=== PATIENT | male | born 1940 | race Hispanic/Latino ===

== ENCOUNTER 2017-11-10 09:35 | Observation (INO) | payer MEDICARE ==
[2017-11-10 09:35] VITALS: BMI 30.8
[2017-11-10 10:17] LABS: BASO # 0.02 K/mm3 (0.0-2.0); BASO % 0.3 % (0.0-3.0); EOS # 0.2 (0.0-0.7); EOS % 2.6 % (1.5-5.0); GRAN # 3.96 (1.4-6.5); GRAN % 59.9 % (50.0-68.0); HEMOGLOBIN 15.6 g/dL (14.0-18.0); LYMPH # 1.9 (1.2-3.4); LYMPH % 29.2 % (22.0-35.0); MEAN CELL VOLUME 96.8 fl (80.0-105.0); MEAN CORPUSCULAR HEMOGLOBIN 32.8 pg (25.0-35.0); MEAN CORPUSCULAR HGB CONC 33.8 g/dl (31.0-37.0); MEAN PLATELET VOLUME 9.8 fl (7.0-11.0); MONO # 0.5 (0.1-0.6); RBC 4.76 10^6/uL (3.5-6.1); RED CELL DISTRIBUTION WIDTH 13.1 % (11.5-14.5); WHITE BLOOD COUNT 6.6 10^3/ul (4.5-11.0)
[2017-11-10 10:29] LABS: ALBUMIN 4.7 g/dL (3.0-4.8); ALT/SGPT 40 U/L (7-56); AST/SGOT 28 U/L (17-59); BLOOD UREA NITROGEN 14 mg/dL (7-21); GFR AFRICAN-AMERICAN > 60; GFR NON-AFRICAN AMERICAN > 60
[2017-11-10 10:41] LABS: ALB/GLOB RATIO 1.3 (1.1-1.8); TROPONIN I < 0.01 ng/mL
--- NOTE | 2017-11-10 11:24 | ED PDOC ---
Arrival/HPI - General Chief Complaint: Chest Pain Time Seen by Provider: 11/10/17 10:05 Historian: Patient - Critical Care Critical Care Minutes: 45 minutes - History of Present Illness Narrative History of Present Illness (Text): 11/10/17 11:00 Robbie Ordaz is a 77 year old male, whose past medical history includes hypertension, who presents to the emergency department complaining of episodes of chest pain that began this morning. Patient reports sitting down but the pain persisted. Additionally, patient reports coughing. Patient denies shortness of breath, fever, nausea, vomiting, diarrhea, or other complaints. Time/Duration: Prior to Arrival Symptom Onset: Sudden Symptom Course: Unchanged Quality: Stabbing Activities at Onset: Light Context: Home Past Medical History - Provider Review Nursing Documentation Reviewed: Yes - Infectious Disease Hx of Infectious Diseases: None - Tetanus Immunization Tetanus Immunization: Unknown - Cardiac Hx Hypertension: Yes - Psychiatric Hx Psychophysiologic Disorder: No Hx Anxiety: No Hx Bipolar Disorder: No Hx Depression: No Hx Emotional Abuse: No Hx Hallucinations: No Hx Panic Disorder: No Hx Post Traumatic Stress Disorder: No Hx Psychosis: No Hx Physical Abuse: No Hx Schizophrenia: No Hx Sexual Abuse: No Hx Substance Use: No - Surgical History Hx Appendectomy: Yes - Anesthesia Hx Anesthesia: Yes Hx Anesthesia Reactions: No Hx Malignant Hyperthermia: No - Suicidal Assessment Feels Threatened In Home Enviroment: No Family/Social History Family/Social History: No Known Family HX Smoking Status: Current Some Days Smoker Hx Alcohol Use: No Hx Substance Use: No Allergies/Home Meds Allergies/Adverse Reactions: Allergies vinger Allergy (Uncoded 11/10/17 09:41) SWELLING Home Medications: Home Meds Medication Instructions Recorded Confirmed Aspirin [Adult Aspirin Regimen] 81 mg PO DAILY 11/10/17 11/10/17 Atorvastatin [Lipitor] 10 mg PO DAILY 11/10/17 11/10/17 Metoprolol Succinate [Toprol XL] 25 mg PO BID 11/10/17 11/10/17 Multivit-Min/FA/Lycopen/Lutein 1 tab PO DAILY 11/10/17 11/10/17 [Centrum Silver Men Tablet] [id number] Ethyl Esters [OMEGA 3] 300 mg PO BID 11/10/17 11/10/17 Omeprazole [Omeprazole] 40 mg PO DAILY 11/10/17 11/10/17 Ranitidine HCl [Zantac 300] 300 mg PO HS 11/10/17 11/10/17 [place] Xt/Phytosterol #2 1 tab PO TID 11/10/17 11/10/17 [Prostate Sr Softgel] Physical Exam Vital Signs Reviewed: Yes Vital Signs Temp Pulse Resp BP Pulse Ox 11/10/17 17:02 98.3 F 81 28 H 149/85 11/10/17 14:00 98.7 F 72 134/74 11/10/17 12:44 97 H 18 128/68 11/10/17 10:50 97 H 16 128/68 98 11/10/17 09:56 96 H 18 162/75 H 98 11/10/17 09:36 97.6 F 156 H 18 144/97 H 98 Temperature: Afebrile Blood Pressure: Hypertensive Pulse: Tachycardic Respiratory Rate: Normal Appearance: Positive for: Well-Appearing, Non-Toxic, Comfortable Pain Distress: None Mental Status: Positive for: Alert and Oriented X 3 - Systems Exam Head: Present: Atraumatic, Normocephalic Pupils: Present: PERRL Extroacular Muscles: Present: EOMI Conjunctiva: Present: Normal Mouth: Present: Moist Mucous Membranes Neck: Present: Normal Range of Motion Respiratory/Chest: Present: Clear to Auscultation, Good Air Exchange. No: Respiratory Distress, Accessory Muscle Use, Wheezes, Retracting, Rhonchi Cardiovascular: Present: Regular Rate and Rhythm, Normal S1, S2. No: Murmurs Abdomen: Present: Normal Bowel Sounds. No: Tenderness, Distention, Peritoneal Signs, Rebound, Guarding Upper Extremity: Present: Normal Inspection. No: Cyanosis, Edema Lower Extremity: Present: Normal Inspection. No: Edema Neurological: Present: GCS=15, CN II-XII Intact, Speech Normal Skin: Present: Warm, Dry, Normal Color. No: Rashes Psychiatric: Present: Alert, Oriented x 3, Normal Insight, Normal Concentration Medical Decision Making ED Course and Treatment: 11/10/17 Impression: 77 year old male with unremarkable physical exam. Plan: -- EKG -- Chest X-ray -- Labs -- Adenosine and Aspirin -- Reassess and disposition Progress Notes: First EKG: Ordered, reviewed, and independently interpreted the EKG. Rate : 155 BPM Rhythm : SVT Interpretation : No ST-segment elevations or depressions, no T-wave inversions, normal intervals. Second EKG: Ordered, reviewed, and independently interpreted the EKG. Rate : 96 BPM Rhythm : NSR Interpretation : PVS's 11/10/2017 11:[address] Rios who accepts patient under his care and will admit to telemetry. - Critical Care Critical Care Minutes: 30 minutes - Lab Interpretations Lab Results: 11/10/17 09:10 11/10/17 09:10 Lab Results 11/10/17 09:10: Free T4 0.90, Total T3 1.35, TSH 3rd Generation 1.41 11/10/17 09:10: Sodium 144, Potassium 4.0, Chloride 103, Carbon Dioxide 28, Anion Gap 17, BUN 14, Creatinine 0.8, Est GFR ( Amer) > 60, Est GFR (Non- Af Amer) > 60, Random Glucose 120 H, Calcium 10.0, Magnesium 2.0, Total Bilirubin 0.5, AST 28, ALT 40, Alkaline Phosphatase 69, Lactate Dehydrogenase 421, Total Creatine Kinase 73, Troponin I < 0.01, Total Protein 8.4 H, Albumin 4.7, Globulin 3.6, Albumin/Globulin Ratio 1.3 11/10/17 09:10: WBC 6.6 D, RBC 4.76, Hgb 15.6, Hct 46.1, MCV 96.8, MCH 32.8, MCHC 33.8, RDW 13.1, Plt Count 207, MPV 9.8, Gran % 59.9, Lymph % (Auto) 29.2, [place] % (Auto) 8.0 H, Eos % (Auto) 2.6, Baso % (Auto) 0.3, Gran # 3.96, Lymph # 1.9, [place] # 0.5, Eos # 0.2, Baso # 0.02 I have reviewed the lab results: Yes - RAD Interpretation Radiology Orders: 11/10/17 10:05 CHEST PORTABLE [RAD] Stat Cosmetician Apprentice: Radiologist - EKG Interpretation Interpreted by ED Physician: Yes Type: 12 lead EKG - Medication Orders Current Medication Orders: Amoxicillin/Clavulanate Potassium (Augmentin 500 Mg-125 Mg Tab) 1 tab PO BID MASOUD PRN Reason: Protocol Last Admin: 11/10/17 18:24 Dose: 1 tab Aspirin (Ecotrin) 81 mg PO DAILY MASOUD Atorvastatin Calcium (Lipitor) 10 mg PO DAILY MASOUD Metoprolol Succinate (Toprol Xl) 25 mg PO Q12 MASOUD Pantoprazole Sodium (Protonix Ec Tab) 40 mg PO DAILY MASOUD Promethazine HCl/Dextromethorphan (Phenergan Dm Syrup) 5 ml PO Q6H PRN PRN Reason: Cough Discontinued Medications Adenosine (Adenosine 6 Mg/2 Ml Inj) 6 mg IVP STAT STA Stop: 11/10/17 10:09 Last Admin: 11/10/17 09:51 Dose: 6 mg IVP Administration Document 11/10/17 09:51 SE (Rec: 11/10/17 10:12 SE [id number]) Charges for Administration # of IVP Administrations 1 Adenosine (Adenosine 6 Mg/2 Ml Inj) 12 mg IVP STAT STA Stop: 11/10/17 10:10 Last Admin: 11/10/17 09:54 Dose: 12 mg IVP Administration Document 11/10/17 09:54 SE (Rec: 11/10/17 10:12 SE [id number]) Charges for Administration # of IVP Administrations 1 Aspirin (Aspirin) 325 mg PO STAT STA Stop: 11/10/17 10:06 Last Admin: 11/10/17 10:26 Dose: 325 mg - Scribe Statement The provider has reviewed the documentation as recorded by the Sean Caballero Provider Scribe Attestation: All medical record entries made by the Benjaminibhayes were at my direction and personally dictated by me. I have reviewed the chart and agree that the record accurately reflects my personal performance of the history, physical exam, medical decision making, and the department course for this patient. I have also personally directed, reviewed, and agree with the discharge instructions and disposition. Disposition/Present on Arrival - Present on Arrival Any Indicators Present on Arrival: No History of DVT/PE: No History of Uncontrolled Diabetes: No Urinary Catheter: No History of Decub. Ulcer: No History Surgical Site Infection Following: None - Disposition Have Diagnosis and Disposition been Completed?: Yes Diagnosis: SVT (supraventricular tachycardia) Disposition: HOSPITALIZED Disposition Time: 10:00 Condition: STABLE
[2017-11-10 11:25] LABS: FREE T4 0.9 ng/dL (0.78-2.19)
[2017-11-10] MEDS ORDERED: Promethazine DM 6.25 mg-15 mg/5 ml Syrup PO PRN (11:38)
[2017-11-10 11:39] LABS: T3 1.35 ng/mL (0.97-1.69)
[2017-11-10] MEDS: Amoxicillin-Clav 500-125 mg Tab PO SCH ×2 (11:50→18:24)
--- NOTE | 2017-11-10 11:54 | RAD ---
HISTORY: chest pain COMPARISON: 06/27/2015 FINDINGS: LUNGS: No active pulmonary disease. PLEURA: No significant pleural effusion identified, no pneumothorax apparent. CARDIOVASCULAR: Normal. OSSEOUS STRUCTURES: No significant abnormalities. VISUALIZED UPPER ABDOMEN: Normal. OTHER FINDINGS: None. IMPRESSION: No active disease.
[2017-11-10 19:48] VITALS: RESP 20
[2017-11-10] MEDS ORDERED: Metoprolol Succinate 25 mg XL Tab PO SCH (22:00)
--- NOTE | 2017-11-10 23:03 | HP ---
HISTORY OF PRESENT ILLNESS: I saw orlin Ordaz in the emergency room at [facility]. He comes in with history of chest pain. He has been dealing with this for a few days, finally at his to be into the emergency room, he was not feeling well. PAST MEDICAL HISTORY: He has a past medical history of hypertension. SOCIAL HISTORY: He still smokes. No alcohol. No drugs. ALLERGIES: HE HAS ALLERGIES TO VINEGAR. He has also been coughing and congested. MEDICATIONS: He takes aspirin, Lipitor for high cholesterol, Toprol, omega-3 fatty acids, omeprazole for some GERD. REVIEW OF SYSTEMS: No acute vision or hearing changes. There is mild sore throat. No neck pain. There is chest pain, it is very uncomfortable. There is congestion and coughing. No abdominal pain, nausea, vomiting, constipation, diarrhea. Extremities are okay. He is urinating okay. Skin is okay. PHYSICAL EXAMINATION: VITAL SIGNS: He has a 97.6 temperature, 156 pulse, 18 respiratory rate, 144/97 blood pressure, 98% O2 saturation on room air. GENERAL: He is well appearing, a little bit uncomfortable with chest pain. Alert and oriented x3, hypertensive, tachycardic. HEENT: Head is atraumatic, normocephalic. Extraocular muscles are intact. Throat is moist. NECK: Supple. Thyroid midline. No palpable or appreciable lymphadenopathy. HEART: Regular rate. Normal S1, S2. LUNGS: Decreased breath sounds. Congestion bilaterally, sounds like a bronchitis. ABDOMEN: Soft, nontender. Positive bowel sounds. No guarding, no rebound, no CVA tenderness. EXTREMITIES: No edema. GCS is 15. NEUROLOGIC: Cranial nerves II-XII grossly intact. Speech is normal. Alert and oriented x3. SKIN: Warm and dry. No apparent rashes or ulcers. LABORATORY DATA: He had multiple lab tests. He has a 144 sodium, potassium is 4, BUN 14, creatinine 0.8, GFR greater than 60, sugar is 120, calcium is 10, magnesium is 2, total bili is 0.5, AST is 20, ALT is 40, alk phos is , lactate dehydrogenase is 421, total creatine kinase is 73. Troponin I is less than 0.01. Total protein is 8.4, albumin is 4.7, globulin 3.6. Thyroid is pending. 6.6 white count, 50.6 hemoglobin, 46.1 hematocrit with 287 platelets. Chest x-ray is pending but appears normal. He will have a consult with his registered nurse nursery, Dr. Luna and be on adenosine. His heart rate under control. Aspirin will be augmented for his bronchitis. Aspirin, atorvastatin, Phenergan DM, and Toprol. We will check his labs tomorrow. Check his troponins q.8 hours. He is here for chest pain, bronchitis. We will watch him very closely. Robert Rios DO [facility]
[2017-11-11 01:44] VITALS: O2SAT 95
[2017-11-11 07:21] LABS: HEMOGLOBIN 14.1 g/dL (14.0-18.0); MEAN CORPUSCULAR HEMOGLOBIN 32.5 pg (25.0-35.0); MEAN CORPUSCULAR HGB CONC 33.5 g/dl (31.0-37.0); MEAN PLATELET VOLUME 9.9 fl (7.0-11.0); RBC 4.34 10^6/uL (3.5-6.1); RED CELL DISTRIBUTION WIDTH 13.2 % (11.5-14.5); WHITE BLOOD COUNT 7.6 10^3/ul (4.5-11.0)
[2017-11-11 07:28] LABS: ALB/GLOB RATIO 1.3 (1.1-1.8); ALT/SGPT 38 U/L (7-56); AST/SGOT 26 U/L (17-59); BLOOD UREA NITROGEN 15 mg/dL (7-21); CALCIUM 9.2 mg/dL (8.4-10.5); GFR AFRICAN-AMERICAN > 60; GFR NON-AFRICAN AMERICAN > 60
[2017-11-11] MEDS ORDERED: Metoprolol Succinate 25 mg XL Tab PO SCH (08:00)
[2017-11-11] MEDS: Amoxicillin-Clav 500-125 mg Tab PO SCH (09:55)
[2017-11-11] MEDS ORDERED: Pantoprazole 40 mg EC Tab PO SCH (10:00)
--- NOTE | 2017-11-11 10:03 | CARD ---
APPROVED REPORT EKG Measurement Heart [id number] <Conclusion> Sinus rhythm with PVCs Inferior infarct, age undetermined Abnormal ECG
[2017-11-11 12:24] VITALS: BP 126/80; TEMP 97.9
[2017-11-11 14:43] VITALS: PULSE 72
--- NOTE | 2017-11-11 16:59 | CARD ---
APPROVED REPORT EKG Measurement Heart [id number] <Conclusion> Supraventricular tachycardia with occasional premature ventricular complexes Inferior-posterior infarct, age undetermined Abnormal ECG
--- NOTE | 2017-11-11 20:16 | CON ---
DATE: 11/11/2017 INDICATIONS: Chest pain, palpitations, SVT. HISTORY OF PRESENT ILLNESS: This is a 77 year old man known to me, who experienced chest discomfort and pounding in the chest yesterday. He came to the Emergency Room and is found to be SVT with heart rate of about 155 beats per minute. He was treated in the Emergency Room with adenosine and reverted to sinus rhythm. He has had no further chest pain or palpitation. He has remained in sinus rhythm while on telemetry overnight. In retrospect he notes some palpitations intermittently over the last few months, but not sustained. There is no shortness of breath, orthopnea, PND, syncope, presyncope, lightheadedness, dizziness, vertigo, edema, claudication, fever, chills, cough, sputum production, hemoptysis, abdominal pain, nausea, vomiting, diarrhea, constipation, or melena. PAST MEDICAL HISTORY: Notable for hypertension, cigarette smoking, he has had a fairly recent nuclear stress test, which was apparently unremarkable. There is hyperlipidemia. There is no history of myocardial infarction, congestive heart failure, stroke, TIA, diabetes, or gout. MEDICATIONS: At the time of admission include aspirin, Lipitor, and metoprolol. ALLERGIES: THERE WERE NO MEDICATION ALLERGIES REPORTED. FAMILY HISTORY: Noncontributory. SOCIAL HISTORY: He smokes intermittently. He does not drink alcohol significantly. He lives at home with his . He is ambulatory. REVIEW OF SYSTEMS: A 10 point review of systems otherwise unremarkable except as noted above. PHYSICAL EXAMINATION: GENERAL: He is well developed man, sitting on his bed in telemetry, in no acute distress. VITAL SIGNS: Notable for sinus rhythm at 62 to 75 beats per minute, he is afebrile, blood pressure 129/75, respirations 18 to 20, O2 sat 93 to 94% on room air. HEENT: Reveals no neck vein distention, thyromegaly or carotid bruits. Mucous membranes moist. Conjunctiva pink. NECK: Supple. LUNGS: Lung moore clear. HEART: Reveals normal first and second hear sounds. There is soft systolic murmur along left sternal border. PMI is not displaced. ABDOMEN: Soft. Bowel sounds present. No mass or organomegaly. No tenderness, rebound, or guarding, CVA tenderness or palpable abdominal aortic aneurysm. EXTREMITIES: Revealed no cyanosis, clubbing or edema. NEUROLOGIC: Awake, alert, and oriented. PSYCHIATRIC: Normal as to mood and affect. SKIN: Warm and dry. No rashes or cellulitis. LABORATORY AND IMAGING: Initial echocardiogram revealed SVT of 155 beats per minute. There are ST T depressions consistent with ischemia. A followup ECG reveals sinus rhythm, PVC, nonspecific ST T wave changes. Chest x ray was a portable study and revealed no active disease. CBC was unremarkable. Comprehensive metabolic panel was unremarkable. Troponins are negative x3. CK was 73. Thyroid functions tests are normal. IMPRESSION: Robbie Ordaz is a 77 year old male, intermittent smoker with hypertension, hyperlipidemia and recent unremarkable nuclear stress test who presents with chest pain and supraventricular tachycardia. ST depressions during supraventricular tachycardia with negative troponins. He reverted to sinus rhythm after doses of adenosine. He has remained in sinus rhythm while on telemetry overnight. PLAN: At this time, I will review his records and recent stress test. I will increase his metoprolol from 25 b.i.d. to 75 mg daily. This can be titrated on outpatient basis. He has been admonished again to stop smoking. We will arrange for office followup. He will report any recurrent symptoms. He will avoid caffeine. We will continue aspirin and Lipitor as well. Patrice Luna MD [facility]
--- NOTE | 2017-11-12 02:24 | DS ---
HISTORY OF PRESENT ILLNESS: I saw Robbie in the dayroom. He could not sleep in his room and his roommate was too loud coughing and congested. He did not get much sleep at all. PHYSICAL EXAMINATION: GENERAL: He is coughing a little bit but not as bad. No more chest pain. He is eating. He is walking well. VITAL SIGNS: He has a 98.5 temperature, 71 pulse, 129/75 blood pressure, 20 respiratory rate, and 95% O2 saturation on room air. HEENT: Head is atraumatic and normocephalic. His mouth is moist. NECK: Supple. HEART: Regular rate. LUNGS: Clear to auscultation. ABDOMEN: Soft and obese. EXTREMITIES: No edema. MEDICATIONS: He is on Augmentin, Ecotrin, Lipitor, Phenergan DM, Protonix, and Toprol. LABORATORY DATA: His labs, he did very well with Troponin I less than 0.01 x3. Awaiting for his CBC and his chemistry to come back this morning, but yesterday's were very good. I am also waiting for Cardiology to give me their opinion. He has no more chest pain and I am hoping for discharge, if it is okay with Cardiology, maybe they can schedule an outpatient stress test or cath with the chest pain went away and he is comfortable. Discharge pending as per Cardiology is okay. He is here for chest pain and bronchitis. Robert Rios DO
== END 2017-11-11 20:00 | disposition home or self-care (01) ==
LOC: ED 09:35 → INTOOBSV 10:58 → ERH 10:58 → 3RSO 17:54
PROVIDERS: ADMIT Family Medicine; ATTEND Family Medicine
DX: I47.1 Supraventricular tachycardia (principal); J40 Bronchitis, not specified as acute or chronic; E78.5 Hyperlipidemia, unspecified; I10 Essential (primary) hypertension; Z90.49 Acquired absence of other specified parts of digestive tract; F17.200 Nicotine dependence, unspecified, uncomplicated; Z79.899 Other long term (current) drug therapy; Z91.018 Allergy to other foods; R40.2412 Glasgow coma scale score 13-15, at arrival to emergency department
CPT/HCPCS: 36415; 71045; 80053; 82550; 83615; 83735; 84439; 84443; 84480; 84484; 85025; 85027; 93005; 96374; 99285; G0378; J0153

== ENCOUNTER 2019-01-21 18:51 | Observation (INO) | payer MEDICARE ==
[2019-01-21 19:02] VITALS: BMI 31.0
[2019-01-21] MEDS ORDERED: Sodium Chloride 0.9% 1,000 ML IV STA (19:19)
[2019-01-21 19:57] LABS: BASO # 0.01 K/mm3 (0.0-2.0); BASO % 0.1 % (0.0-3.0); EOS % 0.1 % (1.5-5.0); HEMOGLOBIN 15.5 g/dL (14.0-18.0); LYMPH # 1.2 (1.2-3.4); LYMPH % 9.2 % (22.0-35.0); MEAN CELL VOLUME 95.4 fl (80.0-105.0); MEAN CORPUSCULAR HEMOGLOBIN 32.6 pg (25.0-35.0); MEAN CORPUSCULAR HGB CONC 34.2 g/dl (31.0-37.0); MEAN PLATELET VOLUME 9.6 fl (7.0-11.0); MONO # 0.7 (0.1-0.6); MONO % 4.9 % (1.0-6.0); RBC 4.75 10^6/uL (3.5-6.1); RED CELL DISTRIBUTION WIDTH 13.5 % (11.5-14.5); WHITE BLOOD COUNT 13.3 10^3/uL (4.5-11.0)
[2019-01-21 20:13] LABS: ALB/GLOB RATIO 1.2 (1.1-1.8); ALBUMIN 4.5 g/dL (3.0-4.8); ALT/SGPT 38 U/L (7-56); AMYLASE 69 U/L (35-125); AST/SGOT 41 U/L (17-59); BLOOD UREA NITROGEN 23 mg/dL (7-21); CALCIUM 9.3 mg/dL (8.4-10.5); GFR NON-AFRICAN AMERICAN > 60; INR 1.08; LIPASE 55 U/L (23-300)
[2019-01-21 20:18] LABS: TROPONIN I < 0.01 ng/mL
--- NOTE | 2019-01-21 20:26 | ED PDOC ---
Arrival/HPI - General Chief Complaint: GI Problem Time Seen by Provider: 01/21/19 19:06 Historian: Patient - History of Present Illness Narrative History of Present Illness (Text): 01/21/19 20:21 Robbie Ordaz is a 78 year old male, whose past medical history includes hypertension and hyperlipidemia, who presents to the Emergency department complaining of nausea, vomiting, and diarrhea for the past 3 days. Patient states symptoms improved initially but got worse today. Patient was advised by his PMD to come to the Emergency department for further evaluation. Patient denies any fever, chills, chest pain, shortness of breath, urinary symptoms, back pain, neck pain, headache, dizziness, or any other complaints. PMD: Dr. Rios Symptom Onset: Gradual Symptom Course: Unchanged Activities at Onset: Light Context: Home Past Medical History - Provider Review Nursing Documentation Reviewed: Yes - Infectious Disease Hx of Infectious Diseases: None - Tetanus Immunization Tetanus Immunization: Unknown - Cardiac Hx Hypertension: Yes - Musculoskeletal/Rheumatological Hx Falls: No - Gastrointestinal Hx Gastroesophageal Reflux: Yes Other/Comment: Polyps -- Dr Hopper - Psychiatric Hx Psychophysiologic Disorder: No Hx Anxiety: No Hx Bipolar Disorder: No Hx Depression: No Hx Emotional Abuse: No Hx Hallucinations: No Hx Panic Disorder: No Hx Post Traumatic Stress Disorder: No Hx Psychosis: No Hx Physical Abuse: No Hx Schizophrenia: No Hx Sexual Abuse: No Hx Substance Use: No - Surgical History Hx Appendectomy: Yes - Anesthesia Hx Anesthesia: Yes Hx Anesthesia Reactions: No Hx Malignant Hyperthermia: No - Suicidal Assessment Feels Threatened In Home Enviroment: No Family/Social History - Physician Review Nursing Documentation Reviewed: Yes Family/Social History: Unknown Family HX Smoking Status: Current Some Days Smoker Hx Alcohol Use: No Hx Substance Use: No Allergies/Home Meds Allergies/Adverse Reactions: Allergies vinger Allergy (Uncoded 11/10/17 09:41) SWELLING Home Medications: Home Meds Medication Instructions Recorded Confirmed Aspirin [Adult Aspirin Regimen] 81 mg PO DAILY 11/10/17 01/22/19 Atorvastatin [Lipitor] 10 mg PO DAILY 11/10/17 01/22/19 Multivit-Min/FA/Lycopen/Lutein 1 tab PO DAILY 11/10/17 01/22/19 [Centrum Silver Men Tablet] [id number] Ethyl Esters [OMEGA 3] 300 mg PO BID 11/10/17 01/22/19 Omeprazole 40 mg PO DAILY 11/10/17 01/22/19 Ranitidine HCl [Zantac 300] 300 mg PO HS 11/10/17 01/22/19 [place] Xt/Phytosterol #2 1 tab PO TID 11/10/17 01/22/19 [Prostate Sr Softgel] Glucosamine/D3/Boswellia Zoya 1 tab PO BID 01/22/19 01/22/19 [Osteo Bi-Flex Tablet] Metoprolol Tartrate [Lopressor] 25 mg PO DAILY 01/22/19 01/22/19 Valsartan/Hydrochlorothiazide 1 tab PO TID 01/22/19 01/22/19 [Valsartan-Hctz 80-12.5 mg Tab] Review of Systems - Physician Review All systems were reviewed & negative as marked: Yes - Review of Systems Constitutional: Normal. absent: Fevers Eyes: Normal ENT: Normal Respiratory: Normal. absent: SOB, Cough Cardiovascular: Normal. absent: Chest Pain Gastrointestinal: Diarrhea, Nausea, Vomiting Genitourinary Male: Normal. absent: Dysuria, Frequency, Hematuria, Urinary Output Changes Musculoskeletal: Normal. absent: Back Pain, Neck Pain Skin: Normal. absent: Rash Neurological: Normal. absent: Headache, Dizziness Endocrine: Normal Hemo/Lymphatic: Normal Psychiatric: Normal Physical Exam Vital Signs Reviewed: Yes Vital Signs Temp Pulse Resp BP Pulse Ox 01/21/19 20:06 113 H 18 113/80 95 01/21/19 19:41 98.1 F 113 H 18 128/104 H 100 Temperature: Afebrile Blood Pressure: Normal Pulse: Regular Respiratory Rate: Normal Appearance: Positive for: Well-Appearing, Non-Toxic, Comfortable Pain Distress: None Mental Status: Positive for: Alert and Oriented X 3 - Systems Exam Head: Present: Atraumatic, Normocephalic Pupils: Present: PERRL Extroacular Muscles: Present: EOMI Conjunctiva: Present: Normal Mouth: Present: Moist Mucous Membranes Neck: Present: Normal Range of Motion Respiratory/Chest: Present: Clear to Auscultation, Good Air Exchange. No: Respiratory Distress, Accessory Muscle Use Cardiovascular: Present: Regular Rate and Rhythm, Normal S1, S2. No: Murmurs Abdomen: Present: Normal Bowel Sounds. No: Tenderness, Distention, Peritoneal Signs Back: Present: Normal Inspection. No: CVA Tenderness, Midline Tenderness, Paraspinal Tenderness Upper Extremity: Present: Normal Inspection. No: Cyanosis, Edema Lower Extremity: Present: Normal Inspection. No: Edema Neurological: Present: GCS=15, CN II-XII Intact, Speech Normal Skin: Present: Warm, Dry, Normal Color. No: Rashes Psychiatric: Present: Alert, Oriented x 3, Normal Insight, Normal Concentration Medical Decision Making ED Course and Treatment: 01/21/19 20:21 Impression: 78 year old male complaining of vomiting and diarrhea for 3 days after eating raw clams. Plan: -- EKG -- Labs, cardiac enzymes, amylase, lipase, blood cultures -- Urinalysis -- IV fluids -- Zofran -- Reassess and disposition Prior Visits: Notes and results from previous visits were reviewed. Progress Notes: Reviewed EKG, sinus tachycardia at [address] bpm[address] Non-specific ST/T wave changes. 01/22/19 01:04 CT Abdomen and Pelvis: LUNG BASES: Mild atelectasis near the lung bases, left greater than right. LIVER: There is diffuse fatty infiltration of liver. Small calcified granuloma in the posterior right lobe of the liver. GALLBLADDER AND BILE DUCTS: Gallbladder is moderately distended measuring 8.7 x 5.0 cm. No definite pericholecystic fluid or pericholecystic inflammation. If indicated, the gallbladder could be further evaluated with right upper quadrant sonogram or HIDA scan. PANCREAS: Unremarkable. SPLEEN: Unremarkable. ADRENAL GLANDS: Unremarkable. KIDNEYS, URETERS, AND BLADDER: There are a couple of subcentimeter hypodensities in the left kidney which are too small to adequately characterize. No hydronephrosis bilaterally. STOMACH AND BOWEL: There is mild sigmoid diverticulosis without convincing evidence for acute diverticulitis. No evidence for bowel obstruction. APPENDIX: No evidence of acute appendicitis on CT examination. PERITONEUM: No free fluid. No free air. LYMPH NODES: No lymphadenopathy is evident. REPRODUCTIVE: The prostate is enlarged measuring 5.1 cm transverse. VASCULATURE: There is moderate atherosclerotic calcification of the abdominal aorta and branches. BONES: Moderate multilevel degenerative spine changes. MISCELLANEOUS: There is a large left midpole cyst which measures 6.6 cm in greatest dimension. There is a subcentimeter hypodensity at the right mid pole which is too small to adequately characterize. IMPRESSION: 1. There is diffuse fatty infiltration of liver. 2. Gallbladder is moderately distended measuring 8.7 x 5.0 cm. No definite pericholecystic fluid or pericholecystic inflammation. If indicated, the gallbladder could be further evaluated with right upper quadrant sonogram or HIDA scan. 3. There is mild sigmoid diverticulosis without convincing evidence for acute diverticulitis. 4. Additional and incidental findings as described. Electronically signed on Jan 22, 2019 12:22:04 AM EDT by: Scott Briones M.D., Certified by ABR, MSK, Neuroradiology 01/22/19 01:[address] Rios, who is aware and agrees with plan. Accepts pt in to his service. Pt will go to [facility] observation for dehydration, gastroenteritis, and hematuria. - Lab Interpretations Lab Results: PT 12.0 SECONDS (9.4-12.5) 01/21/19 19:51 INR 1.08 01/21/19 19:51 APTT 30.0 Seconds (26.9-38.3) 01/21/19 19:51 Troponin I < 0.01 ng/mL 01/21/19 19:51 Total Bilirubin 0.4 mg/dL (0.2-1.3) 01/21/19 19:51 AST 41 U/L (17-59) 01/21/19 19:51 ALT 38 U/L (7-56) 01/21/19 19:51 Alkaline Phosphatase 69 U/L (38-126) 01/21/19 19:51 Total Protein 8.3 g/dL (5.8-8.3) 01/21/19 19:51 Albumin 4.5 g/dL (3.0-4.8) 01/21/19 19:51 Globulin 3.8 gm/dL 01/21/19 19:51 Albumin/Globulin Ratio 1.2 (1.1-1.8) 01/21/19 19:51 Amylase 69 U/L (35-125) 01/21/19 19:51 Lipase 55 U/L (23-300) 01/21/19 19:51 I have reviewed the lab results: Yes - RAD Interpretation Quality Assurance Monitor Final: Radiologist - EKG Interpretation Interpreted by ED Physician: Yes Type: 12 lead EKG - Medication Orders Current Medication Orders: Sodium Chloride (Sodium Chloride 0.9%) 1,000 mls @ 100 mls/hr IV .Q10H STA Stop: 01/22/19 05:18 Last Admin: 01/21/19 20:02 Dose: 100 mls/hr eMAR Start Stop Document 01/21/19 20:02 EQ (Rec: 01/21/19 20:02 EQ [id number]) Intravenous Solution Start Date 01/21/19 Start Time 20:02 Discontinued Medications Ondansetron HCl (Zofran Inj) 4 mg IVP STAT STA Stop: 01/21/19 19:20 Last Admin: 01/21/19 20:02 Dose: 4 mg IVP Administration Document 01/21/19 20:02 EQ (Rec: 01/21/19 20:02 EQ [id number]) Charges for Administration # of IVP Administrations 1 - Scribe Statement The provider has reviewed the documentation as recorded by the Scribhayes Leblanc Provider Scribe Attestation: All medical record entries made by the Scribe were at my direction and personally dictated by me. I have reviewed the chart and agree that the record accurately reflects my personal performance of the history, physical exam, medical decision making, and the department course for this patient. I have also personally directed, reviewed, and agree with the discharge instructions and disposition. Disposition/Present on Arrival - Present on Arrival Any Indicators Present on Arrival: No History of DVT/PE: No History of Uncontrolled Diabetes: No Urinary Catheter: No History of Decub. Ulcer: No History Surgical Site Infection Following: None - Disposition Have Diagnosis and Disposition been Completed?: Yes Diagnosis: Intractable vomiting, Abdominal pain Disposition: HOSPITALIZED Disposition Time: :20 Condition: GOOD
[2019-01-21 21:27] LABS: URINE BILIRUBIN NEGATIVE (NEGATIVE); URINE BLOOD NEGATIVE (NEGATIVE); URINE GLUCOSE (UA) NEGATIVE (NEGATIVE); URINE LEUKOCYTE ESTERASE NEGATIVE Leu/uL (NEGATIVE); URINE PROTEIN 100 mg/dL (<30 mg/dL); URINE UROBILINOGEN 0.2 E.U./dL (<1 E.U./dL)
[2019-01-21 21:29] LABS: URINE APPEARANCE CLEAR (CLEAR); URINE COLOR YELLOW (YELLOW)
[2019-01-21 21:46] LABS: URINE BACTERIA FEW /hpf; URINE RBC TNTC /hpf (0-2)
[2019-01-22] MEDS ORDERED: Sodium Chloride 0.9% 1,000 ML IV STA (01:25)
[2019-01-22] MEDS ORDERED: Sodium Chloride 0.45% 1,000 ML IV SCH (09:00)
[2019-01-22 10:06] VITALS: RESP 20
--- NOTE | 2019-01-22 10:20 | CT ---
Date of service: 01/21/2019 PROCEDURE: CT Abdomen and Pelvis with contrast HISTORY: abd pAIN COMPARISON: None. TECHNIQUE: Contrast dose: Radiation dose: Total exam DLP = 1051.15 mGy-cm. This CT exam was performed using one or more of the following dose reduction techniques: Automated exposure control, adjustment of the mA and/or kV according to patient size, and/or use of iterative reconstruction technique. FINDINGS: LOWER THORAX: Unremarkable. LIVER: Fatty liver. GALLBLADDER AND BILE DUCTS: Mild gallbladder distention. PANCREAS: Unremarkable. No gross lesion or ductal dilatation. SPLEEN: Unremarkable. ADRENALS: Unremarkable. No mass. KIDNEYS AND URETERS: 6 centimeter left renal cyst. No hydronephrosis. No solid mass. VASCULATURE: Unremarkable. No aortic aneurysm. No aortic atherosclerotic calcification or mural plaque present. BOWEL: Mild colonic diverticulosis. No obstruction. No gross mural thickening. APPENDIX: Normal appendix. PERITONEUM: Unremarkable. No free fluid. No free air. LYMPH NODES: Unremarkable. No enlarged lymph nodes. BLADDER: Unremarkable. REPRODUCTIVE: Unremarkable. BONES: No acute fracture. OTHER FINDINGS: None. IMPRESSION: Mild gallbladder distention and colonic diverticulosis. Large left renal cyst. Fatty liver.
[2019-01-22 10:53] LABS: ALB/GLOB RATIO 1.1 (1.1-1.8); ALBUMIN 3.9 g/dL (3.0-4.8); ALT/SGPT 33 U/L (7-56); AST/SGOT 32 U/L (17-59); BLOOD UREA NITROGEN 18 mg/dL (7-21); CALCIUM 8.7 mg/dL (8.4-10.5); GFR NON-AFRICAN AMERICAN > 60
--- NOTE | 2019-01-22 12:16 | CP.PCM.APN ---
Subjective - Date & Time of Evaluation Date of Evaluation: 01/22/19 Time of Evaluation: 12:00 - Subjective Subjective: pt seen and examined at [facility], pt states he feels better since admission and last episode of vomiting diarrhea ws 7pm. pt tolerating liquid diet deneis n/v /d since last night. Review of Systems - Review of Systems All systems: reviewed and no additional remarkable complaints except Objective - Vital Signs/Intake and Output Vital Signs (last 24 hours): Temp Pulse Resp BP Pulse Ox 79 F L 93 H 20 148/78 95 01/22/19 10:05 01/22/19 10:05 01/22/19 10:05 01/22/19 10:05 01/22/19 10:05 Intake and Output: 01/22/19 01/22/19 06:59 18:59 Intake Total 240 Balance 240 - Medications Medications: Current Medications Acetaminophen (Tylenol 325mg Tab) 650 mg PO Q4H PRN PRN Reason: Pain, Mild (1-3) Aspirin (Ecotrin) 81 mg PO DAILY [facility] Last Admin: 01/22/19 11:11 Dose: 81 mg Sodium Chloride (Sodium Chloride 0.9%) 1,000 mls @ 80 mls/hr IV .[id number] STA Stop: 01/22/19 13:54 Last Admin: 01/22/19 01:48 Dose: 80 mls/hr Sodium Chloride (Sodium Chloride 0.45%) 1,000 mls @ 80 mls/hr IV .[id number] [facility] Metoprolol Tartrate (Lopressor) 25 mg PO DAILY [facility] Last Admin: 01/22/19 11:11 Dose: 25 mg Ondansetron HCl (Zofran Inj) 4 mg IVP Q6H PRN PRN Reason: Nausea/Vomiting Pantoprazole Sodium (Protonix Inj) 40 mg IVP DAILY [facility] Last Admin: 01/22/19 11:10 Dose: 40 mg - Labs Labs: 01/21/19 19:51 01/22/19 10:20 PT 12.0 SECONDS (9.4-12.5) 01/21/19 19:51 INR 1.08 01/21/19 19:51 APTT 30.0 Seconds (26.9-38.3) 01/21/19 19:51 - Constitutional Appears: No Acute Distress - Head Exam Head Exam: NORMOCEPHALIC - Eye Exam Pupil Exam: NORMAL ACCOMODATION, PERRL - ENT Exam ENT Exam: Mucous Membranes Moist, Normal Exam - Neck Exam Neck Exam: Normal Inspection - Respiratory Exam Respiratory Exam: Clear to Ausculation Bilateral, NORMAL BREATHING PATTERN - Cardiovascular Exam Cardiovascular Exam: +S1, +S2 - GI/Abdominal Exam GI & Abdominal Exam: Soft, Normal Bowel Sounds - Extremities Exam Extremities Exam: Full ROM, Normal Capillary Refill - Neurological Exam Neurological Exam: Alert, Awake, Oriented x3 Additional comments: moves all extremities - Skin Skin Exam: Dry, Intact Assessment and Plan - Assessment and Plan (Free Text) Plan: ITS Impressions Abdomen/Pelvis CT 01/21/19 20:29 IMPRESSION: Mild gallbladder distention and colonic diverticulosis. Large left renal cyst. Fatty liver. 78 yr old white male with pmh sig for htn, hld who presented to the Ed for evaluation of vomiting and diarrhea after eating seafood (20 oysters, shrimp and steak) at [place] [employer] [place] per conversation with patient. pt is now being evaluated for GI for ? enteritis. pt is on a clear liquid diet which he is tolerating . pt is for GB ultrasound to assess Gb distention seen on CT abdomen plan to continue to advance diet and see how pt tolerates, will follow up on GB US results and pt clinical status. Tracy Giles BPCI/TIC - BPCIA/TIC Educated pt/family on BPCIA/CIR/Med to Bed Programs: N/A Flyers given, including [facility] Beneficiary letter: N/A Pt/family verbalized understanding & agreed to program: N/A
[2019-01-22 15:06] VITALS: BP 139/74; PULSE 100; TEMP 96; O2SAT 96
--- NOTE | 2019-01-22 16:06 | US ---
Date of service: 01/22/2019 HISTORY: gallstones COMPARISON: None. TECHNIQUE: Sonographic evaluation of the right upper quadrant of the abdomen. FINDINGS: LIVER: Measures 20.1 cm in length. Diffusely increased echogenicity of the liver parenchyma. Consistent with fatty infiltration. Smooth contour. No mass. No biliary dilatation. Normal hepatopetal portal venous flow peer GALLBLADDER: Unremarkable. No gallstones. COMMON BILE DUCT: Measures 4 mm. No stones. No dilatation. PANCREAS: Unremarkable as visualized. No mass. No ductal dilatation. RIGHT KIDNEY: Measures 12.3 cm in length. Normal echogenicity. No calculus, mass, or hydronephrosis. AORTA: No aneurysmal dilatation. IVC: Unremarkable. OTHER FINDINGS: None . IMPRESSION: Mild hepatomegaly. Fatty infiltration of the liver. No evidence of cholelithiasis or cholecystitis.
--- NOTE | 2019-01-22 16:29 | CARD ---
APPROVED REPORT Date of service: 01/21/2019 EKG Measurement Heart [id number] <Conclusion> Sinus tachycardia Possible Inferior infarct, age Old. Abnormal ECG
[2019-01-22 16:33] LABS: BASO # 0.01 K/mm3 (0.0-2.0); BASO % 0.1 % (0.0-3.0); HEMOGLOBIN 13.8 g/dL (14.0-18.0); LYMPH # 0.7 (1.2-3.4); LYMPH % 7.8 % (22.0-35.0); MEAN CELL VOLUME 96.7 fl (80.0-105.0); MEAN CORPUSCULAR HEMOGLOBIN 32.4 pg (25.0-35.0); MEAN CORPUSCULAR HGB CONC 33.5 g/dl (31.0-37.0); MEAN PLATELET VOLUME 9.2 fl (7.0-11.0); MONO # 1.2 (0.1-0.6); MONO % 14.1 % (1.0-6.0); RBC 4.26 10^6/uL (3.5-6.1); RED CELL DISTRIBUTION WIDTH 14.1 % (11.5-14.5); WHITE BLOOD COUNT 8.8 10^3/uL (4.5-11.0)
--- NOTE | 2019-01-22 20:00 | HP ---
DATE OF EXAM: 01/22/2019 HISTORY OF PRESENT ILLNESS: For the past 3 days since he ate raw clams, he has been feeling nauseous and having diarrhea. He is getting very weak. He had 8 to 10 watery diarrhea a day. He was also taking lots of Imodium, which is not really working. He got to the point where last night he got so dehydrated he could not stand up without getting dizzy, so I sent him to the emergency room, finally he listened after 3 days. He was trying bananas, rice, apple sauce and toast and Gatorade and was throwing it all up. PAST MEDICAL HISTORY: He is a 78-year-old white man I have known for years who has high cholesterol, hypertension and nausea, vomiting, diarrhea since he ate raw clams. He has had reflux before. He has had polyps. He has had an appendectomy in the past. FAMILY HISTORY: Unknown family history. SOCIAL HISTORY: He still smokes cigarettes. No alcohol. No drugs. ALLERGIES: VINEGAR. MEDICATIONS: He is on aspirin, Lipitor, Centrum, omega-3, omeprazole, Zantac, saw palmetto, Osteo Bi-Flex, metoprolol, valsartan, hydrochlorothiazide. REVIEW OF SYSTEMS: He is very weak, nauseous, diarrhea, abdominal pain. No acute vision or hearing changes. No fevers. No shortness of breath or cough. No chest pain or palpitation. He is having diarrhea, nausea, vomiting unrelenting with abdominal cramping. Decrease in urine, darker urine. No back pain or neck pain. No apparent rashes or ulcers that he knows of. No headache or dizziness. He is not anxious. PHYSICAL EXAMINATION GENERAL: Well appearing, little toxic from all the diarrhea and nausea, vomiting. Alert and oriented x3. VITAL SIGNS: He has a 98.1 temperature, 113 pulse, 18 respiratory rate, 128/104 blood pressure, and 100% O2 sat. HEENT: Head is atraumatic, normocephalic. Extraocular muscles are intact. Pupils equally react to light. Throat is dry. NECK: Supple. HEART: Regular rate. Normal S1, S2. LUNGS: Decreased breath sounds but clear to auscultation. Poor inspiration. No wheezes, no rhonchi, no rales. ABDOMEN: Mildly tender all over. Decreased bowel sounds that are high-pitched, you would not hear them. No guarding, no rebound. May be mildly distended. EXTREMITIES: No edema. NEUROLOGIC: GCS is 15. Cranial nerves II through XII grossly intact. Speech is normal. Alert and oriented x3. SKIN: Warm and dry. No apparent rashes or ulcers. LYMPHATICS: Thyroid midline. No palpable appreciable lymphadenopathy. LABORATORY DATA: EKG was sinus tachycardia, nonspecific T-wave changes. CT scan of the abdomen and pelvis showed diffuse fatty liver infiltration, gallbladder was mildly distended. He has been throwing up and it could be retching, diverticulosis. He had other tests. He had a 13.3 white count, 15.5 hemoglobin, 45.3 hematocrit with 227 platelets. A 1.08 INR. He has a 140 sodium, potassium 4.1, BUN 23, creatinine 1, GFR is greater than 60, sugar is 125, calcium is 9.3, total bili is 0.4, AST is 41, ALT is 38, alk phos 69, total protein is 8.3. Lactate hydrogenase is 528, total creatine kinase is 61. Troponin I is less than 0.01, albumin is 4.5, amylase is 69, lipase is 55. Urine was too numerous to count red blood cells and negative for flu. 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 Hopefully he had better quicker. I ordered some labs for this morning. We will see if he is improving on IV fluids and increase his diet to clear liquids for breakfast. If he does well, we will increase it to regular for lunch, that is if the numbers in the labs come down and are improved. We will discharge him later this afternoon, I am hoping. This is a history and physical on [employer] who came in with severe nausea, vomiting, diarrhea after eating raw clams. Also, he has gallstones, fatty liver, a little dehydrated. Robert Rios DO
== END 2019-01-22 18:45 | disposition home or self-care (01) ==
LOC: ED 18:51 → ERH 01-22 01:24 → 5RNO 01-22 03:00
PROVIDERS: ADMIT Family Medicine; ATTEND Family Medicine
DX: E86.0 Dehydration (principal); K52.9 Noninfective gastroenteritis and colitis, unspecified; R31.9 Hematuria, unspecified; K21.9 Gastro-esophageal reflux disease without esophagitis; E78.00 Pure hypercholesterolemia, unspecified; E78.5 Hyperlipidemia, unspecified; F17.210 Nicotine dependence, cigarettes, uncomplicated; I10 Essential (primary) hypertension; K57.30 Diverticulosis of large intestine without perforation or abscess without bleeding; K76.0 Fatty (change of) liver, not elsewhere classified; K80.20 Calculus of gallbladder without cholecystitis without obstruction; Z79.82 Long term (current) use of aspirin; Z90.49 Acquired absence of other specified parts of digestive tract; Z91.018 Allergy to other foods; R11.10 Vomiting, unspecified; R00.0 Tachycardia, unspecified
CPT/HCPCS: 36415; 74177; 76705; 80053; 81001; 82150; 82550; 83615; 83690; 84484; 85025; 85610; 85730; 87040; 87086; 87804; 93005; 96374; 96375; 99285; C9113; G0378; J2405; J7030; Q9967